=== PATIENT | female | born 1995 | race African-American/Black ===

== ENCOUNTER 2017-08-15 11:18 | Emergency (ER) | payer OTHER ==
[2017-08-15] MEDS: ONDANSETRON 4 MG ORAL DISINTEGRATING TAB (Q0162 PER 1MG) PO (12:21)
== END 2017-08-15 12:37 | disposition home or self-care (01) ==
LOC: M ED 11:18
DX: A08.4 Viral intestinal infection, unspecified (principal); N92.6 Irregular menstruation, unspecified
CPT/HCPCS: Q0162

== ENCOUNTER 2017-12-16 08:01 | Emergency (ER) | payer OTHER ==
[2017-12-16 08:59] LABS: BASO % 0.2 % (0.0-1.0); EOS # 0.1 10^3/uL (0.0-0.50); EOS % 1.1 % (0.0-3.0); HEMOGLOBIN 13.5 g/dl (12.0-15.5); IMMATURE GRANULOCYTE % 0.4 % (0-3.0); LYMPH # 2.7 10^3/uL (1.5-6.5); LYMPH % 47.3 % (24.0-44.0); MEAN CORPUSCULAR HEMOGLOBIN 30.4 pg (27.0-33.0); MEAN CORPUSCULAR HGB CONC 33.8 g/dl (32.0-36.5); MEAN CORPUSCULAR VOLUME 90.1 fl (80.0-96.0); MONO # 0.5 10^3/uL (0.0-0.8); MONO % 8.8 % (0.0-5.0); NEUTROPHILS # 2.4 10^3/uL (1.8-7.7); NEUTROPHILS % 42.2 % (36.0-66.0); PLATELET COUNT, AUTOMATED 129 10^3/uL (150-450); RED BLOOD COUNT 4.44 10^6/uL (4.00-5.40); RED CELL DISTRIBUTION WIDTH 11.8 % (11.5-14.5); WHITE BLOOD COUNT 5.6 10^3/uL (4.0-10.0)
[2017-12-16 09:01] LABS: KETONE, URINE AUTO RFX NEGATIVE (NEGATIVE); LEUKOCYTE ESTERASE UR AUTO RFX NEGATIVE (NEGATIVE); MUCUS, URINE RFX SMALL (NEGATIVE); NITRITE, URINE AUTO RFX NEGATIVE (NEGATIVE); RBC, URINE AUTO RFX 2 /HPF (0-3); SPECIFIC GRAVITY UR AUTO RFX 1.011 (1.002-1.035); SQUAM EPITHELIAL CELL UR AURFX 1 /HPF (0-6); WBC, URINE AUTO RFX 0 /HPF (0-3)
[2017-12-16 09:27] LABS: ANION GAP 7 MEQ/L (8-16); BLOOD UREA NITROGEN 8 MG/DL (7-18); CALCIUM LEVEL 8.3 MG/DL (8.5-10.1); CARBON DIOXIDE LEVEL 23 MEQ/L (21-32); CHLORIDE LEVEL 111 MEQ/L (98-107); CREATININE FOR GFR 0.87 MG/DL (0.55-1.30); GLUCOSE, FASTING 79 MG/DL (70-100); HCG, SERUM QUANTITATIVE 1105 MIU/ML; POTASSIUM SERUM 3.7 MEQ/L (3.5-5.1); SODIUM LEVEL 141 MEQ/L (136-145)
== END 2017-12-16 09:44 | disposition home or self-care (01) ==
LOC: M ED 08:01
DX: O20.9 Hemorrhage in early pregnancy, unspecified (principal); O34.81 Maternal care for other abnormalities of pelvic organs, first trimester; N83.201 Unspecified ovarian cyst, right side; Z3A.01 Less than 8 weeks gestation of pregnancy
CPT/HCPCS: 76801

== ENCOUNTER → 2017-12-18 | Outpatient (CLI) | payer OTHER ==
[2017-12-18 11:05] LABS: HCG, SERUM QUANTITATIVE 423 MIU/ML
== END ==
LOC: M LAB 09:25
DX: O20.8 Other hemorrhage in early pregnancy (principal)

== ENCOUNTER 2018-09-08 05:57 | Inpatient (IN) | payer OTHER ==
[2018-09-08] VITALS (9 sets, daily range): BP systolic 124–154; BP diastolic 71–94
[~2018-09-08] VITALS: Ht 165.1 cm; Wt 88.6 kg
[~2018-09-08 05:57] MED LIST: ZOFR4TAB14 PO
[2018-09-08] MEDS ORDERED: hydrALAZINE INJ 20 MG/ML VIAL IV STA (06:57)
[2018-09-08 07:33] LABS: BASO % 0.2 % (0.0-1.0); EOS % 0.7 % (0.0-3.0); HEMATOCRIT 31.9 % (36.0-47.0); HEMOGLOBIN 11.4 g/dl (12.0-15.5); LYMPH # 2.2 10^3/uL (1.5-6.5); LYMPH % 37.8 % (24.0-44.0); MEAN CORPUSCULAR HEMOGLOBIN 32.1 pg (27.0-33.0); MEAN CORPUSCULAR HGB CONC 35.7 g/dl (32.0-36.5); MEAN CORPUSCULAR VOLUME 89.9 fl (80.0-96.0); MONO # 0.7 10^3/uL (0.0-0.8); MONO % 11.9 % (0.0-5.0); NEUTROPHILS # 2.8 10^3/uL (1.8-7.7); NEUTROPHILS % 49.1 % (36.0-66.0); PLATELET COUNT, AUTOMATED 123 10^3/uL (150-450); RED BLOOD COUNT 3.55 10^6/uL (4.00-5.40); WHITE BLOOD COUNT 5.7 10^3/uL (4.0-10.0)
[2018-09-08 07:36] LABS: ALT/SGPT 22 U/L (12-78); BILIRUBIN,TOTAL 0.4 MG/DL (0.2-1.0); GLOMERULAR FILTRATION RATE > 60.0 (>60); LDH LACTATE DEHYDROGENASE 250 U/L (84-246); URIC ACID 4.5 MG/DL (2.6-6.0)
[2018-09-08 08:16] LABS: AMORPHOUS SEDIMENT SMALL (NEGATIVE); APPEARANCE, URINE HAZY (CLEAR); BACTERIA, URINE AUTO 1+ (NEGATIVE); BILIRUBIN, URINE AUTO NEGATIVE (NEGATIVE); BLOOD, URINE BLOOD 1+ (NEGATIVE); COLOR, URINE YELLOW (YELLOW); GLUCOSE, URINE (UA) AUTO NEGATIVE (NEGATIVE); KETONE, URINE AUTO NEGATIVE (NEGATIVE); LEUKOCYTE ESTERASE, URINE AUTO TRACE (NEGATIVE); MUCUS, URINE SMALL (NEGATIVE); NITRITE, URINE AUTO NEGATIVE (NEGATIVE); PROTEIN, URINE AUTO 1+ mg/dL (NEGATIVE); RBC, URINE AUTO 0 /HPF (0-3); SPECIFIC GRAVITY URINE AUTO 1.002 (1.002-1.035); SQUAMOUS EPITHELIAL CELL UR AU 3 /HPF (0-6); UROBILINOGEN, URINE AUTO 0.2 mg/dL (0.0-2.0); WBC, URINE AUTO 8 /HPF (0-3)
[2018-09-08 08:33] LABS: AMPHETAMINES URINE REFLEX NEGATIVE (NEGATIVE); BARBITURATES URINE REFLEX NEGATIVE (NEGATIVE); BENZODIAZEPINES URINE REFLEX NEGATIVE (NEGATIVE); CANNABINOIDS URINE REFLEX NEGATIVE (NEGATIVE); COCAINE METABOLITE URINE REFLE NEGATIVE (NEGATIVE); METHADONE URINE REFLEX NEGATIVE (NEGATIVE); OPIATES URINE REFLEX NEGATIVE (NEGATIVE); PHENCYCLIDINE URINE REFLEX NEGATIVE (NEGATIVE)
[2018-09-08] MEDS ORDERED: BICITRA 30ML SOLN UDC As Ordered ONE (08:33)
[2018-09-08] MEDS ORDERED: ceFAZolin 2 GM/D5W 50 ML IV BAG (J0690 PER 500MG) As Ordered ONE (08:33)
[2018-09-08 08:34] LABS: CREATININE,RANDOM URINE 46.7 MG/DL
--- NOTE | 2018-09-08 08:42 | HPEPDOC ---
Obstetrical History & Physical General Date of Admission Sep 08, 2018 at 05:57 History of Present Illness 23 y/o at 38+2 with known di/di twins here for IOL vs CD based on presentation. No LOF/VB/Ctx's/MOJICA/vis changes. Chief Complaint: Induction of labor Information Provided By: Patient Care Care: Good Care Dating Final EDC by: LMP, 1st trimester ([place]) Past Medical History Past Obstetrical History : Past Obstetrical History: Multigravida MANAGER ED History: Spontaneous (x1 2018) Past Medical History Medical History denies, chlamydia [id number] Surgical History: Denies/None Family History Significant Family History: No pertinent family hx Social History Marital Status: Family situation: Spouse/partner home Psychosocial History: No pertinent psych hx * Smoker: non-smoker Alcohol: Denies Drugs: denies Abuse Violence Screening Have you been hit/kicked/slapp: No Have you been sexually assault: No Imunizations Tdap status: current Influenza Status: current Allergies Coded Allergies: No Known Drug Allergies (Verified Allergy, Unknown, 09/08/18) Physical Examination Physical Examination GENERAL: Alert and oriented times three. ABDOMEN: Gravid and non-tender to touch. FETI: A-Vtx, B-Breech RUQ EXTREMITIES: No edema. Vital Signs/I&O Vital Signs Date Time Temp Pulse Resp B/P (MAP) Pulse Ox O2 Delivery O2 Flow Rate FiO2 09/08/18 07:15 76 146/89 (108) Laboratory Data 24H LABS Laboratory Tests 2 09/08/18 06:49: Immature Granulocyte % (Auto) 0.3, White Blood Count 5.7, Red Blood Count 3.55L, Hemoglobin 11.4L, Hematocrit 31.9L, Mean Corpuscular Volume 89.9, Mean Corpuscular Hemoglobin 32.1, Mean Corpuscular Hemoglobin Concent 35.7, Red Cell Distribution Width 12.0, Platelet Count 123L, Neutrophils (%) (Auto) 49.1, Lymphocytes (%) (Auto) 37.8, Monocytes (%) (Auto) 11.9H, Eosinophils (%) (Auto) 0.7, Basophils (%) (Auto) 0.2, Neutrophils # (Auto) 2.8, Lymphocytes # (Auto) 2.2, Monocytes # (Auto) 0.7, Eosinophils # (Auto) 0.0, Basophils # (Auto) 0.0, Nucleated Red Blood Cells % (auto) 0.0, Glomerular Filtration Rate > 60.0, Creatinine 0.90, Aspartate Amino Transf (AST/SGOT) 26, Alanine Aminotransferase (ALT/SGPT) 22, Lactate Dehydrogenase 250H, Total Bilirubin 0.4, Uric Acid 4.5 09/08/18 07:00: Urine Appearance HAZY, Urine Color YELLOW, Urine pH 6.0, Urine Specific [place] 1.002, Urine Protein 1+H, Urine Glucose (UA) NEGATIVE, Urine Ketones NEGATIVE, Urine Urobilinogen 0.2, Urine Bilirubin NEGATIVE, Urine Leukocyte Esterase TRACEH, Urine Blood 1+H, Urine Nitrite NEGATIVE, Urine WBC (Auto) 8H, Urine RBC (Auto) 0, Urine Hyaline Casts (Auto) 0, Urine Bacteria (Auto) 1+H, Urine Squamous Epithelial Cells 3, Urine Amorphous Sediment SMALLH, Urine Mucus (Auto) SMALL, Urine Sperm (Auto) 09/08/18 08:04: Serology Scanned Report Hepatitis B Testing CBC/BMP Laboratory Tests 09/08/18 06:49 Red Blood Count 3.55 L, Mean Corpuscular Volume 89.9, Mean Corpuscular Hemoglobin 32.1, Mean Corpuscular Hemoglobin Concent 35.7, Red Cell Distribution Width 12.0, Neutrophils (%) (Auto) 49.1, Lymphocytes (%) (Auto) 37.8, Monocytes (%) (Auto) 11.9 H, Eosinophils (%) (Auto) 0.7, Basophils (%) (Auto) 0.2, Neutrophils # (Auto) 2.8, Lymphocytes # (Auto) 2.2, Monocytes # (Auto) 0.7, Eosinophils # (Auto) 0.0, Basophils # (Auto) 0.0, Aspartate Amino Transf (AST/SGOT) 26, Alanine Aminotransferase (ALT/SGPT) 22, Lactate Dehydrogenase 250 H, Total Bilirubin 0.4, Uric Acid 4.5 Urine Culture: Contaminated Pertinent Laboratoy Data Blood Type: AB+ RBC Antibody Screen: Negative HIV: Negative Hepatitis B: Negative Hepatitis C: Unknown Rapid Plasma Reagin: Nonreactive Rubella: Immune Varicella: Immune Chlamydia/Gonorrhea: Negative Group B Streptococcus: Negative Quad Screen Test: Unknown Cystic Fibrosis: Negative Glucose Tolerance Test: 85 Anatomy Ultrasound Placenta Location: Anterior Normal Anatomy: Yes Placenta Previa: No Assessment Variability: Moderate Accelerations: Positive Decelerations: None Tocometer Contractions: Yes Frequency: irregular Assessment/Plan Assessment 38+2, Vtx/Breech. IC obtained for delivery. Of note, received Hydralazine right after admission for persistent severe range BP's on arrival. Serum pre-e labs and CBC is normal. Plan Admit and orient. Network Technical Analyst and consent. Group B Streptococcus (GBS) neg Labs and intravenous (IV) per unit protocol. C-S this AM. Watch BP's closely. SESSIONS,BRITTANY Phillips MD Sep 08, 2018 08:42
[2018-09-08] MEDS ORDERED: OXYTOCIN INJ 10 UNITS/ML VIAL (J2590) As Ordered ONE (08:43)
[2018-09-08] MEDS ORDERED: ONDANSETRON 4MG/2ML VIAL (J2405) As Ordered ONE ×2 (08:44→11:16)
[2018-09-08] MEDS ORDERED: MORPHINE PRES-FREE INJ 10 MG/10 ML VIAL (J2274) As Ordered ONE (08:49)
[2018-09-08] MEDS: PRENATAL VITAMINS CHEWABLE TABLET PO SCH (09:00)
[2018-09-08] MEDS ORDERED: NALOXONE INJ 0.4 MG/1 ML VIAL (J2310) IV PRN ×2 (09:02)
[2018-09-08] MEDS ORDERED: NALBUPHINE HCL 10 MG/ML AMP (J2300) IV PRN ×2 (09:02→10:30)
[2018-09-08] MEDS ORDERED: METOCLOPRAMIDE INJ 10MG/2ML VIAL (J2765) IV PRN ×3 (09:02→10:30)
[2018-09-08] MEDS ORDERED: diphenhydrAMINE INJ 50MG/ML VIAL (J1200) IV PRN (09:02)
[2018-09-08] MEDS ORDERED: ONDANSETRON 4MG/2ML VIAL (J2405) IV PRN ×2 (09:02→10:30)
[2018-09-08] MEDS ORDERED: KETOROLAC 60 MG/2 ML VIAL (J1885) As Ordered ONE (09:14)
[2018-09-08] MEDS ORDERED: OXYTOCIN DRIP 30 UNITS in APPROPRIATE DILUENT 1 EA IV SCH (10:12)
[2018-09-08] MEDS ORDERED: OXYTOCIN 30 UNITS IN 0.9% NaCl 500ML IV BAG (J2590) As Ordered ONE (10:13)
[2018-09-08] MEDS ORDERED: PERCOCET 5MG/325MG TAB PO PRN ×3 (10:15→10:30)
[2018-09-08] MEDS ORDERED: RHOGAM 300 MCG (1500 IU) INJ (J2790) IM SCH (10:15)
[2018-09-08] MEDS ORDERED: MEASLES,MUMPS,RUBELLA VACCINE INJ (MMR-II) (90707) SC SCH (10:15)
[2018-09-08] MEDS ORDERED: fentaNYL 100 MCG/2 ML INJECTION (J3010) IV PRN (10:30)
[2018-09-08] MEDS ORDERED: KETOROLAC 30 MG/ML VIAL (J1885) IV PRN (10:30)
[2018-09-08] MEDS ORDERED: LR 1,000 ML IV SCH (10:30)
[2018-09-08] MEDS ORDERED: METOCLOPRAMIDE INJ 10MG/2ML VIAL (J2765) As Ordered ONE (11:55)
[2018-09-08] MEDS: LR 1,000 ML IV SCH ×2 (14:59→23:16)
[2018-09-08] MEDS: KETOROLAC 30 MG/ML VIAL (J1885) IV SCH ×2 (15:24→21:17)
[2018-09-08] MEDS: DOCUSATE SODIUM 100 MG CAP PO SCH (21:16)
[2018-09-09] VITALS (14 sets, daily range): BP systolic 118–143; BP diastolic 70–92
[2018-09-09] MEDS: KETOROLAC 30 MG/ML VIAL (J1885) IV SCH (04:00)
[2018-09-09 06:56] LABS: HEMATOCRIT 19.7 % (36.0-47.0); MEAN CORPUSCULAR HEMOGLOBIN 32.3 pg (27.0-33.0); MEAN CORPUSCULAR HGB CONC 35.5 g/dl (32.0-36.5); MEAN CORPUSCULAR VOLUME 90.8 fl (80.0-96.0); PLATELET COUNT, AUTOMATED 100 10^3/uL (150-450); RED BLOOD COUNT 2.17 10^6/uL (4.00-5.40); WHITE BLOOD COUNT 8.1 10^3/uL (4.0-10.0)
--- NOTE | 2018-09-09 07:52 | RO ---
DATE OF PROCEDURE: 09/08/2018 SURGEON: Dr. Booker Scott MACHINIST FIRST CLASS: Karie Cerda CNM PREOPERATIVE DIAGNOSIS: Diamniotic dichorionic twin gestation, vertex breech presentation and preeclampsia. POSTOPERATIVE DIAGNOSIS: Diamniotic dichorionic twin gestation, vertex breech presentation and preeclampsia. ANESTHESIA: Spinal. ESTIMATED BLOOD LOSS: 500 mL. DRAINS: 150 mL of urine in Petty catheter. FLUIDS REPLACED: 1300 mL of lactated Ringer's. PROCEDURE: Primary low transverse section. PREOPERATIVE ANTIBIOTICS: Ancef 2 grams IV. SPECIMENS: None. FINDINGS: Pfannenstiel skin incision, low transverse uterine incision, clear fluid times two, baby A vertex weighing 2350 grams or 5 pounds 3 ounces, scores 9 and 9, baby B 2580 grams or 5 pounds 11 ounce, double footling breech, scores 9 and 9. INDICATION: The patient was admitted at 38 weeks 2 days by her OB clinic team, I had not met the patient previously. Plan was for induction of labor versus delivery based on presentation of the twins. I had performed an ultrasound at the bedside which showed baby A was vertex and baby B was completely breech even though the week before had been reported to be transverse. Informed consent was obtained and the operating room (OR) team was mobilized. DESCRIPTION OF OPERATION: The patient was taken to the operating room with an IV in place and placed in dorsal supine position with a leftward tilt. Spinal anesthetic was easily obtained prior to her correct placement for the surgery. Petty catheter was easily placed. The patient was prepped and draped and before starting confirmed that spinal was working adequately. Pfannenstiel skin incision was carried down to the layer of the fascia which was nicked in the midline, extended with the extent of the skin incision. Dheeraj clamps were placed superiorly and the underlying rectus muscles were dissected from the fascia. This was repeated inferiorly without difficulty. Rectus muscles were in the midline and the peritoneum was identified and breeched with my digit without difficulty bluntly and quick observation revealed no scar tissue intraperitoneally. Peritoneum window was stretched to adequacy, bladder blade was placed, bladder flap was easily created in a low transverse uterine incision was performed until an amniotomy was noted of clear fluid. 's head was flexed and easily delivered through the incision. Cord was clamped times two and cut and the was handed off to waiting resuscitation team. A second baby was noted to be in double footling breech presentation when the membranes were ruptured with an Allis clamp. I immediately had both feet, delivered the baby to the axilla, baby was taken posterior and would not rotate towards the floor therefore I performed a [place] maneuver after sweeping the arms across the chest bilaterally and the easily delivered without difficulty. Cord was clamped times two and cut and the was handed off to the resuscitation team. No cord blood was needed and both infants were in great shape upon delivery. Placentas were delivered, a traction maneuver on the cords and fundal massage and Pitocin running wide open. Uterus was delivered through the incision, wrapped in warm sponge and cleared of all clots and debris with two dry sponges. The uterine incision was then closed from left to right with a running locked suture of 0 Vicryl. 0 Monocryl was used to imbricate and the bladder flap was easily resound to the uterine incision. Irrigation was performed behind the uterus and the uterus was returned to its anatomical state. Colic gutters were irrigated bilaterally and expressed of all clots and debris. Peritoneum was closed from superior to inferior with 3-0 Vicryl and the rectus bellies were noted to be hemostatic. Fascia was closed from left to right with a running suture of 0 Vicryl. Subcutaneous tissue was copiously irrigated and made to be hemostatic and re-approximated with 2-0 Vicryl. 4-0 Monocryl was used in a subcuticular fashion to close the skin and Steri-Strips and pressure dressing were placed over the incision. All counts throughout the case were correct including sponge, needle and instruments and the patient's legs were frogged and therefore a bimanual exam with the uterus noted be firm at U and a small amount of clot expressed with fundal massage. Overall the surgery was uncomplicated and all three patient's including mom and both babies were doing well at the end of the case.
[2018-09-09] MEDS ORDERED: NS 1,000 ML IV SCH (07:57)
--- NOTE | 2018-09-09 07:57 | IPNPDOC ---
Text Note Date of Service The patient was seen on 09/09/18. NOTE POD1 PLTCS States feeling well, pain controlled with prescribed meds. Baby bonding and feeding well. No heavy VB. Lochia slowing. Ambulatory. Tolerating PO without issues. Petty removed overnight, has voided x1, UO adequate. VSSAF NAD A&O RRR CTAB LE no C/C/E Ut at U-2, [employer] with small blood stains on bandage, no induration or fluctuance, no collection of fluid underneath CBC this AM with HCT 19.7, Plt 100 from preop HCT 31.9 and PLT 123 a/p: Doing well but surprising drop in CBC, warrants a transfusion of 2 units PRBC's. Orders written, communicated to RN. Cont routine postop care. D/C tomorrow likely. CBC 4 hrs after 2nd unit complete. Sessions Saba FUENTES, I+O VSSaba I+O Laboratory Tests 09/09/18 06:21 Red Blood Count 2.17 L, Mean Corpuscular Volume 90.8, Mean Corpuscular Hemoglobin 32.3, Mean Corpuscular Hemoglobin Concent 35.5, Red Cell Distribution Width 12.2 Vital Signs Date Time Temp Pulse Resp B/P (MAP) Pulse Ox O2 Delivery O2 Flow Rate FiO2 09/09/18 06:08 100.2 91 18 134/70 (91) 09/08/18 21:42 98 I&O- Last 24 Hours up to 6 AM 09/09/18 06:00 Intake Total 1096 ml Output Total 3495 ml Balance -2399 ml SESSIONS,BRITTANY Phillips MD Sep 09, 2018 07:57
[2018-09-09] MEDS ORDERED: diphenhydrAMINE 25 MG CAP PO ONE (08:00)
[2018-09-09] MEDS ORDERED: ACETAMINOPHEN TAB 650MG DOSE (2X325MG) PO ONE (08:00)
[2018-09-09] MEDS: PRENATAL VITAMINS CHEWABLE TABLET PO SCH (09:49)
[2018-09-09] MEDS: DOCUSATE SODIUM 100 MG CAP PO SCH ×2 (09:49→20:11)
[2018-09-09] MEDS: IBUPROFEN 800 MG TAB PO SCH ×2 (13:01→20:12)
--- NOTE | 2018-09-09 22:35 | IPN ---
DATE: 09/09/2018 This patient requested circumcision of her male . After discussing risks and benefits of circumcision, the medical and nonmedical indications, the penile block and aftercare, expressed understanding of the penile block and aftercare and bleeding, signed the consent form. We await the clearance by the weaving instructor. All questions were answered. 20-minute discussion.
[2018-09-10] MEDS: IBUPROFEN 800 MG TAB PO SCH ×2 (03:43→12:01)
[2018-09-10 05:55] VITALS: BP 146/87
[2018-09-10 07:00] LABS: HEMATOCRIT 32.9 % (36.0-47.0); HEMOGLOBIN 11.3 g/dl (12.0-15.5); MEAN CORPUSCULAR HEMOGLOBIN 30.9 pg (27.0-33.0); MEAN CORPUSCULAR HGB CONC 34.3 g/dl (32.0-36.5); MEAN CORPUSCULAR VOLUME 89.9 fl (80.0-96.0); PLATELET COUNT, AUTOMATED 121 10^3/uL (150-450); RED BLOOD COUNT 3.66 10^6/uL (4.00-5.40); WHITE BLOOD COUNT 10.4 10^3/uL (4.0-10.0)
[2018-09-10] MEDS: PRENATAL VITAMINS CHEWABLE TABLET PO SCH (08:14)
[2018-09-10] MEDS: DOCUSATE SODIUM 100 MG CAP PO SCH (08:14)
[2018-09-10 09:57] VITALS: BP 147/86
--- NOTE | 2018-09-10 10:10 | IPNPDOC ---
Text Note Date of Service The patient was seen on 09/10/18. NOTE POD2 PLTCS, now ~48 hours States feeling well, pain controlled with prescribed meds. Baby bonding and feeding well. No heavy VB. Lochia slowing. Ambulatory. Tolerating PO without issues. Petty out and voiding, UO adequate. Received another 2 units of blood from Dr Fitzgerald yesterday evening, total 4 units. VSSAF NAD A&O RRR CTAB LE no C/C/E Ut at U-1, [employer] CDI, no induration or oozing CBC this AM shows Hct 32.9 and PLT 121 a/p: Doing well. Cont routine postop care. D/C this morning. Sessions Saba FUENTES, I+O Saba [place] I+O Laboratory Tests 09/10/18 06:16 Red Blood Count 3.66 L, Mean Corpuscular Volume 89.9, Mean Corpuscular Hemoglobin 30.9, Mean Corpuscular Hemoglobin Concent 34.3, Red Cell Distribution Width 12.9 Vital Signs Date Time Temp Pulse Resp B/P (MAP) Pulse Ox O2 Delivery O2 Flow Rate FiO2 09/10/18 09:57 98.2 66 14 147/86 (106) 99 I&O- Last 24 Hours up to 6 AM 09/10/18 06:00 Intake Total 885 ml Output Total 6250 ml Balance -5365 ml SESSIONS,BRITTANY Phillips MD Sep 10, 2018 10:10
--- NOTE | 2018-09-10 10:13 | DS.PDOC ---
Discharge Summary General Date of Admission Sep 08, 2018 at 05:57 Date of Discharge 10sep2018 Discharge Summary ADMITTING DIAGNOSES: 38+2, twins DISCHARGE DIAGNOSES: PLTCS for Vtx/Breech, s/p postop transfusion 4 units PRBC's HOSPITAL COURSE: Ultrasound showed Vtx/Breech. delivery uncomplicated. Postop course complicated by unexpectedly low CBC, received [address] Scott (surgeon) the morning of POD1, then 2 units of blood by the covering physician, Dr Fitzgerald later in the day on POD1. Discharge HCT was 32.9. DISCHARGE MEDICATIONS: Motrin, Lanolin, Percocet, Colace DISCHARGE INSTRUCTIONS: Nothing in the vagina for 6 weeks. No driving for 2 weeks. No bathing for 4 weeks, shower only. F/U in OBGYN clinic in 1-2 weeks for incision check and routine follow-up in 6-8 weeks. Sonia RAYA Vital Signs/I&Os Vital Signs Date Time Temp Pulse Resp B/P (MAP) Pulse Ox O2 Delivery O2 Flow Rate FiO2 09/10/18 09:57 98.2 66 14 147/86 (106) 99 I&O- Last 24 Hours up to 6 AM 09/10/18 05:59 Intake Total 885 ml Output Total 6250 ml Balance -5365 ml Laboratory Data Labs 24H Laboratory Tests 2 09/10/18 06:16: Nucleated Red Blood Cells % (auto) 0.0 CBC/BMP Laboratory Tests 09/10/18 06:16 Red Blood Count 3.66 L, Mean Corpuscular Volume 89.9, Mean Corpuscular Hemoglobin 30.9, Mean Corpuscular Hemoglobin Concent 34.3, Red Cell Distribution Width 12.9 Allergies Coded Allergies: No Known Drug Allergies (Verified Allergy, Unknown, 09/08/18) BRITTANY SCOTT MD Sep 10, 2018 10:13
[2018-09-10] MEDS ORDERED: COLA100C5 PO (10:16)
[2018-09-10] MEDS ORDERED: PERCOCET PO (10:16)
[2018-09-10] MEDS ORDERED: IBUP80TA PO (10:16)
[2018-09-10] MEDS ORDERED: PRENCHW PO (10:16)
== END 2018-09-10 12:29 | disposition home or self-care (01) | DRG 773 ==
LOC: M LDI 05:57 → M OBS 12:10
PROVIDERS: ADMIT Obstetrics & Gynecology; ATTEND Obstetrics & Gynecology
PROC: 10D00Z1 Extraction of Products of Conception, Low, Open Approach (ICD-10-PCS; principal; 2018-09-08 10:00)
PROC: 30233N1 Transfusion of Nonautologous Red Blood Cells into Peripheral Vein, Percutaneous Approach (ICD-10-PCS; 2018-09-09)
DX: O32.8XX2 Maternal care for other malpresentation of fetus, fetus 2 (principal); O30.043 Twin pregnancy, dichorionic/diamniotic, third trimester; Z3A.38 38 weeks gestation of pregnancy; Z37.2 Twins, both liveborn